=== PATIENT | male | born 1935 | race Caucasian/White ===

== ENCOUNTER 2016-10-06 09:40 | Inpatient (IN) | payer MEDICARE, OTHER ==
--- NOTE | ~2016-10-06 | CN ---
Consultation Report [facility] [address] [place]. [address] NAME: DAVEY GARY ZAKI ALCANTARA : 37 STATUS : ADM IN [facility]#: [id number] AGE: 80 ADM/REG DATE : 10/06/16 MR#: [id number] REPORT SERV DATE: 10/06/16 DICTATED BY: JOSEF YOUNG DATE: 10/06/16 REPORT STATUS : Draft TRANSCRIBED BY: MODL DATE: 10/06/16 CONSULTATION DATE OF CONSULTATION: 10/06/2016 HISTORY OF PRESENT ILLNESS: This is a 80-year-old man whom I am asked to see as an unattached GI consult for GI bleeding. This gentleman had been seen by Dr. Pleitez in the past. He reports a colonoscopy approximately five years ago with findings of diverticulosis. He has never had any prior gastrointestinal bleeding. Three evenings ago, he noticed some loose stool that was bright red and then he passed some maroon. There were even little bits of black. This persisted through this morning, so he came to the emergency room. Hemoglobin was 7.9, but he is hemodynamically stable after a little bit of fluid resuscitation. He is admitted and is receiving packed red blood cells. We were asked to arrange endoscopic evaluation. He denies any abdominal pain. PAST MEDICAL HISTORY: 1. Diverticulosis. 2. Hypertension. 3. BPH. 4. Hyperlipidemia. 5. GERD. PAST SURGICAL HISTORY: Status post melanoma excision in [address] Simone Ruth M.D., Jr., and status post TURP. MEDICATIONS (ON ADMISSION): Aspirin 81 mg, Tums, Coreg, Hygroton, Cardizem CD, Nexium 40 mg a day, Proscar, Metamucil, Crestor, and Diovan. ALLERGIES: NO KNOWN DRUG ALLERGIES. FAMILY HISTORY: No colon cancer or GI issues. SOCIAL HISTORY: He is and his is quite ill with cancer and some heart problems for which she had a valve replacement in [place] and he is her primary caregiver. REVIEW OF SYSTEMS: Otherwise unremarkable. PHYSICAL EXAMINATION: GENERAL: He is quite fit-appearing man for his advanced age. VITAL SIGNS: Afebrile. Hemodynamically stable. SKIN: Warm and dry. Consultation Report [facility] [address] [place]. [address] NAME: DAVEY GARY JR : 37 STATUS : ADM IN PAT#: [id number] AGE: 80 ADM/REG DATE : 10/06/16 MR#: [id number] REPORT SERV DATE: 10/06/16 DICTATED BY: JOSEF YOUNG DATE: 10/06/16 REPORT STATUS : Draft TRANSCRIBED BY: MODL DATE: 10/06/16 LUNGS: Clear. ABDOMEN: Soft, nontender, without mass or organomegaly. EXTREMITIES: No edema. LABORATORY DATA: Portable chest x-ray shows mild bibasilar atelectasis. Sodium 138, potassium 4.1, BUN 25, creatinine 1.63, albumin 3.4. Liver enzymes normal. INR 1.4. Hemoglobin 7.9 and white blood cell count 12.2. IMPRESSION: Gastrointestinal bleeding, which appears to be colonic in nature but with hemodynamic stability and active bleeding likely a couple of days ago. RECOMMENDATIONS: 1. Agree with transfusion. 2. Monitor hemoglobin and hematocrit. 3. Start Protonix 40 mg IV q.12. 4. Bowel prep for EGD and colonoscopy tomorrow. /NERIS Josef Young M.D. / [id number] CC: Zoila Segundo M.D.
--- NOTE | ~2016-10-06 | DS ---
Discharge Summary [facility] [place] [id number] [place]. [address] NAME: DAVEY GARY JR : 37 STATUS : DIS IN PAT#: [id number] AGE: 80 ADM/REG DATE : 10/06/16 MR#: [id number] REPORT SERV DATE: 10/09/16 DICTATED BY: DATE: REPORT STATUS : Draft TRANSCRIBED BY: MODL DATE: 10/08/16 ADMISSION DATE: 10/06/2016 DISCHARGE DATE: 10/08/2016 DISCHARGE DIAGNOSES: 1. Acute lower gastrointestinal bleed most likely diverticular in origin. 2. Acute blood loss anemia. 3. Diverticulosis. 4. Benign prostatic hyperplasia. 5. Hyperlipidemia. 6. Hypertension. 7. Gastroesophageal reflux disease. CONSULTING PHYSICIANS: Include Dr. Josef Young with Gastroenterology. DISCHARGE MEDICATIONS: Include Proscar 5 mg p.o. at bedtime, Nexium 40 mg p.o. daily, Coreg 3.125 mg p.o. daily, Hygroton 12.5 mg p.o. daily, Cardizem CD 240 mg p.o. daily, Diovan 320 mg p.o. at bedtime, Crestor 20 mg p.o. at bedtime, aspirin 81 mg p.o. daily, Metamucil 15 mL p.o. daily. IMAGING: Includes a portable chest x-ray on 09/25/2016, which demonstrated mild bibasilar atelectasis. Otherwise, no acute cardiopulmonary abnormality identified. PROCEDURES: Include esophagogastroduodenoscopy, which demonstrated normal esophagus, normal stomach and gastroesophageal junction, and normal examined duodenum. Colonoscopy demonstrated moderate diverticulosis in the entire examined colon. Otherwise, the examination was normal. No blood in the colon, but possible recent episode consistent with self-limited diverticular bleed. HOSPITAL COURSE/PROBLEM LIST: 1. Acute lower GI bleed. This has resolved. The patient has not had a bowel movement since yesterday. Hemoglobin after 1 unit of blood went from 7.5 to 9.9. The patient is tolerating a regular diet. He requests to go home today. 2. Acute blood loss anemia. As noted above, the patient's hemoglobin is 9.9. He is not actively bleeding. He has not had a bowel movement since yesterday. 3. Diverticulosis. The patient will need to follow up p.r.n. I discussed with the patient if he does start to have bloody bowel movements again to return to the ER immediately. Otherwise, he can follow up with his primary care provider. He does not have a gastroenterologists at this time. He may want to follow up with Dr. Young, who performed his upper and lower endoscopies while here in the hospital. 4. BPH. We will continue his finasteride. 5. Hyperlipidemia. We will continue his statin. 6. Hypertension. The patient's systolic blood pressure this morning was 188; however, we have held all of his antihypertensive medications due to acute blood loss anemia and possible hypotension. I will give the patient his home antihypertensives here prior to discharge and recheck his blood pressure prior to discharge. Discharge Summary [address] [address] NAME: DAVEY GARY JR : 37 STATUS : DIS IN PAT#: [id number] AGE: 80 ADM/REG DATE : 10/06/16 MR#: [id number] REPORT SERV DATE: 10/09/16 DICTATED BY: DATE: REPORT STATUS : Draft TRANSCRIBED BY: MODL DATE: 10/08/16 7. GERD. We will continue the patient's Nexium. Again, the patient will follow up with his primary care provider, Dr. Julio Romero. CLR/MODL Ren Garvin NP / [id number] CC: MD Julio Padilla M.D.
--- NOTE | ~2016-10-06 | HP ---
History And Physical [place] [id number] [facility] [address] [place]. [address] NAME: DAVEY GARY JR : 37 STATUS : ADM IN [facility]#: [id number] AGE: 80 ADM/REG DATE : 10/06/16 MR#: [id number] REPORT SERV DATE: 10/06/16 DICTATED BY: WANDER SOSA DATE: 10/06/16 REPORT STATUS : Draft TRANSCRIBED BY: MODChristina DATE: 10/06/16 DATE OF ADMISSION: 10/06/2016 CHIEF COMPLAINT: GI bleed. BRIEF HISTORY OF PRESENT ILLNESS: The patient is a 80-year-old white male, relatively healthy, who presented to [facility] emergency room early this morning with complaints of GI bleeding that has been rodolfo bright red per rectum. He said it started on , and he has had several bowel movements that have just been grossly bloody. Prior to that, he denied any black stools, any nausea or vomiting. He has not had any weight loss. He has not any fever or chills. He denied any chest pain. He did have a syncopal episode this morning and fell. When he came to, he was fully awake, alert, and oriented. Did not lose control of his bowel or his bladder. In the emergency room, he was found to have a significantly low hemoglobin of 7.8 and a slightly low blood pressure around one teens, so he was referred to the hospitalist service for further treatment and evaluation. REVIEW OF SYSTEMS: Negative except for what is noted in the HPI. PAST MEDICAL HISTORY: Significant for hypertension, hyperlipidemia, abnormal rhythm, gastroesophageal reflux, diverticulosis, and benign prostatic hypertrophy. PAST SURGICAL HISTORY: Significant for colonoscopy five years ago by Dr. Corey Pleitez showing diverticulosis. Prostate cryotherapy, without prostate cancer. ALLERGIES: NO KNOWN DRUG ALLERGIES. HOME MEDICATIONS: Aspirin 81 mg daily, Tums 500 mg daily p.r.n., Coreg 3.125 mg daily, Hygroton 12.5 mg once daily, Cardizem CD 240 mg once daily, Nexium 40 mg once every morning, Proscar 5 mg once at bedtime, Metamucil packet p.r.n., Crestor 20 mg daily, valsartan 325 mg p.o. daily. SOCIAL HISTORY: He was a previous smoker, quit in 1997. Smoked heavily and a pipe and chewed tobacco. He was a prior drinker, quit in 1969. No use of illicit substances. FAMILY HISTORY: Significant for a son who has diverticulosis. Mother early in age, unknown cause. Father was an [employer] vet, and was on many medicines, but unknown type of disease. PHYSICAL EXAMINATION: GENERAL: White male, lying on a gurney, appears to be in no respiratory distress. Appears younger than his stated age. VITAL SIGNS: Blood pressure is 160/51, temp 97.7, pulse 82, saturation 96% on room air. HEENT: Head is normocephalic, atraumatic. Pupils are equal, round, and reactive to light. Sclerae, eyes anicteric. Conjunctivae are pale. Extraocular muscles are intact. Oropharynx without lesion. Tongue protrusion midline. Uvula midline. Pale mucous History And Physical [address] [place]. [address] NAME: DAVEY GARY : 37 STATUS : ADM IN [facility]#: [id number] AGE: 80 ADM/REG DATE : 10/06/16 MR#: [id number] REPORT SERV DATE: 10/06/16 DICTATED BY: WANDER SOSA DATE: 10/06/16 REPORT STATUS : Draft TRANSCRIBED BY: NERIS DATE: 10/06/16 membranes are noted. NECK: Supple. No jugular venous distention. No carotid bruits or thyromegaly is appreciated. No lymphadenopathy in the neck is palpable. HEART: Regular rate rhythm. No murmurs, rubs, or gallops are heard. PMI nondisplaced. LUNGS: Clear to auscultation both anteriorly and posteriorly without rales, rhonchi, wheezing, or consolidation. ABDOMEN: Scaphoid, soft, nontender, good bowel sounds. No rebound or guarding. No organomegaly. EXTREMITIES: Without cyanosis, clubbing, or edema. NEUROLOGICAL: Exam seems to be grossly intact. LABS: EKG sinus rhythm with multiple PACs, right bundle-branch block. No acute ST-T wave changes. White count is 12.2, hemoglobin is 7.9, hematocrit is 23.4, platelet count is 399,000. Sodium 138, potassium 4.1, chloride 108, bicarb 25, BUN 25, creatinine 1.03, glucose of 147. PT is 16.9, INR of 1.4, PTT of 27. Liver function studies are normal. Chest x-ray, no acute disease. IMPRESSION: 1. Lower GI bleed. 2. Anemia of acute blood loss. 3. Hypertension. 4. Hyperlipidemia. 5. Gastroesophageal reflux. 6. Diverticulosis. 7. Benign prostatic hypertrophy. PLAN: The patient will be admitted. Transfuse PRBCs. Monitor serial H and H. GI consultation. We will need a colonoscopy. Hold antihypertensives. The patient is a DNR. POLST form signed and on the chart. SV/MODL Wander Sosa M.D. / [id number] CC: Zoila Segundo M.D. Brian Negus, M.D.
--- NOTE | ~2016-10-06 | EGD ---
EGD REPORT [facility] [address] [address] NAME: PEDRO GARY JR : 37 STATUS : ADM IN PAT#: [id number] AGE: 80 ADM/REG DATE : 10/06/16 MR#: [id number] REPORT SERV DATE: 10/07/16 DICTATED BY: MICHAEL BRIGHT DATE: 10/07/16 REPORT STATUS : Draft TRANSCRIBED BY: [facility] DATE: 10/07/16 Endoscopy Center Patient Name: Pedro Gary Date of : 1935 Attending MD: MICHAEL BRIGHT MD Procedure Date No Time: 10/07/2016 Procedure: Colonoscopy Indications: Hematochezia, Acute post hemorrhagic anemia Referring MD: NEIDA REYES Medicines: Propofol per Anesthesia Complications: No immediate complications. Estimated blood loss: None. Procedure: Pre-Anesthesia Assessment: - After reviewing the risks and benefits, the patient was deemed in satisfactory condition to undergo the procedure. - Prior to the procedure, a History and Physical was performed, and patient medications and allergies were reviewed. The patient's tolerance of previous anesthesia was also reviewed. The risks and benefits of the procedure and the sedation options and risks were discussed with the patient. All questions were answered, and informed consent was obtained. Prior Anticoagulants: The patient has taken no previous anticoagulant or antiplatelet agents. ASA Grade Assessment: III - A patient with severe systemic disease. After reviewing the risks and benefits, the patient was deemed in satisfactory condition to undergo the procedure. After I obtained informed consent, the scope was passed under direct vision. Throughout the procedure, the patient's blood pressure, pulse, and oxygen saturations were monitored continuously. The CF [id number] was introduced through the anus and advanced to the cecum, identified by appendiceal orifice and ileocecal valve. The colonoscopy was performed without difficulty. The ileocecal valve and appendiceal orifice were photographed. The patient tolerated the procedure well. The quality of the bowel preparation was adequate to identify polyps 6 mm and larger in size. The bowel preparation used was split dose polyethylene glycol (PEG). Scope withdrawal time was 8 minutes. Findings: The perianal and digital rectal examinations were normal. Pertinent negatives include normal sphincter tone. Multiple small and large-mouthed diverticula were found in the entire EGD REPORT [address] [place]. [address] NAME: PEDRO GARY : 37 STATUS : ADM IN [facility]#: [id number] AGE: 80 ADM/REG DATE : 10/06/16 MR#: [id number] REPORT SERV DATE: 10/07/16 DICTATED BY: MICHAEL BRIGHT DATE: 10/07/16 REPORT STATUS : Draft TRANSCRIBED BY: Loginza DATE: 10/07/16 colon. The exam was otherwise without abnormality. Impression: - Moderate diverticulosis in the entire examined colon. - The examination was otherwise normal. - No blood in the colon but recent episode consistent with self-limited diverticular bleed. Recommendation: - [facility] patient [facility] care. - Advance diet. - Monitor hemoglobin. - If stable, home in AM. Procedure Code(s): --- Professional --- 18299, Colonoscopy, flexible, proximal to splenic flexure; diagnostic, with or without collection of specimen(s) by brushing or washing, with or without colon decompression (separate procedure) Diagnosis Code(s): --- Professional --- K57.30, Diverticulosis of large intestine without perforation or abscess without bleeding K92.1, Melena D62, Acute posthemorrhagic anemia CPT copyright 2013 [employer]. All rights reserved. The codes documented in this report are preliminary and upon medical billing coder review may be revised to meet current compliance requirements. MICHAEL BRIGHT MD 10/07/2016 3:58 PM This report has been signed electronically. Number of Addenda: 0 Note Initiated On: 10/07/2016 3:20 PM Scope Withdrawal Time 0 hours 7 minutes 32 seconds [address] [place] [address]
--- NOTE | ~2016-10-06 | EGD ---
EGD REPORT [facility] [address] [address] NAME: PEDRO GARY JR : 37 STATUS : ADM IN PAT#: [id number] AGE: 80 ADM/REG DATE : 10/06/16 MR#: [id number] REPORT SERV DATE: 10/07/16 DICTATED BY: MICHAEL BRIGHT DATE: 10/07/16 REPORT STATUS : Draft TRANSCRIBED BY: [facility] DATE: 10/07/16 Endoscopy Center Patient Name: Pedro Gary Date of : 1935 Attending MD: MICHAEL BRIGHT MD Procedure Date No Time: 10/07/2016 Procedure: Upper GI endoscopy Indications: Hematochezia Referring MD: NEIDA REYES Medicines: Propofol per Anesthesia Complications: No immediate complications. Estimated blood loss: None. Procedure: Pre-Anesthesia Assessment: - After reviewing the risks and benefits, the patient was deemed in satisfactory condition to undergo the procedure. - Prior to the procedure, a History and Physical was performed, and patient medications and allergies were reviewed. The patient's tolerance of previous anesthesia was also reviewed. The risks and benefits of the procedure and the sedation options and risks were discussed with the patient. All questions were answered, and informed consent was obtained. Prior Anticoagulants: The patient has taken no previous anticoagulant or antiplatelet agents. ASA Grade Assessment: III - A patient with severe systemic disease. After reviewing the risks and benefits, the patient was deemed in satisfactory condition to undergo the procedure. After obtaining informed consent, the endoscope was passed under direct vision. Throughout the procedure, the patient's blood pressure, pulse, and oxygen saturations were monitored continuously. The GIF [id number] was introduced through the mouth, and advanced to the third part of duodenum. The upper GI endoscopy was accomplished without difficulty. The patient tolerated the procedure well. Findings: The examined esophagus was normal. The entire examined stomach and gastroesophageal junction (on retroflexion) were normal. The examined duodenum was normal. Impression: - Normal esophagus. - Normal stomach and gastroesophageal junction. - Normal examined duodenum. EGD REPORT [address] [address] NAME: PEDRO GARY : 37 STATUS : ADM IN [facility]#: [id number] AGE: 80 ADM/REG DATE : 10/06/16 MR#: [id number] REPORT SERV DATE: 10/07/16 DICTATED BY: MICHAEL BRIGHT. DATE: 10/07/16 REPORT STATUS : Draft TRANSCRIBED BY: [employer] DATE: 10/07/16 Recommendation: - Return patient to [facility] for ongoing care. - Proceed with colonoscopy. Procedure Code(s): --- Professional --- 75281, Esophagogastroduodenoscopy, flexible, transoral; diagnostic, including collection of specimen(s) by brushing or washing, when performed (separate procedure) Diagnosis Code(s): --- Professional --- K92.1, Melena CPT copyright 2013 [employer]. All rights reserved. The codes documented in this report are preliminary and upon coder operator review may be revised to meet current compliance requirements. MICHAEL BRIGHT MD 10/07/2016 3:37 PM This report has been signed electronically. Number of Addenda: 0 Note Initiated On: 10/07/2016 3:23 PM Scope Withdrawal Time 0 hours 0 minutes 0 seconds [address] [place] [address]
[2016-10-06 09:33] LABS: BASOPHILS 0.3 %; BASOPHILS ABSOLUTE 0.04 10/3/uL (0.0-0.16); EOSINOPHILS 2.5 %; ER CBC TAT 0 Hrs 08 Mins; HEMATOCRIT 23.4 % (40.0-51.0); HEMOGLOBIN 7.9 g/dL (13.6-17.8); IMMATURE GRANULOCYTES 0.6 %; IMMATURE GRANULOCYTES ABSOLUTE 0.07 10/3/uL (0.0-0.11); LYMPHOCYTES 18.5 %; LYMPHOCYTES ABSOLUTE 2.25 10/3/uL (0.67-4.30); MANUAL DIFF NO %; MEAN CORPUS HGB CONC 33.8 g/dL (32.0-36.0); MEAN CORPUSCULAR HEMOGLOB 28.9 pg (26.0-34.0); MEAN CORPUSCULAR VOLUME 85.7 fL (80-100); MEAN PLATELET VOLUME 8.5 fL (9.2-13.0); MONOCYTES 6.2 %; MONOCYTES ABSOLUTE 0.75 10/3/uL (0.21-1.20); NEUTROPHILS 71.9 %; NEUTROPHILS ABSOLUTE 8.75 10/3/uL (2.02-8.40); PLATELET COUNT 399 10/3/uL (150-400); RBC DISTRIBUTION WIDTH 14.6 % (12.0-16.0); RED CELL COUNT 2.73 10/6/uL (4.7-6.1); WHITE BLOOD CELLS 12.2 10/3/uL (4.5-10.5)
[2016-10-06 09:37] LABS: INTERNATIONAL NORMAL RATI 1.4 UNITS (-); PARTIAL THROMBO TIME 27.3 SEC (22.5-37.2); PROTIME (NOT ORD) 16.9 SEC (12.0-14.5)
[~2016-10-06 09:40] MED LIST: ASAB PO; CARDCD240 PO; COREG3 PO; CRESTOR20 MG PO; DIOVAN320 MG PO; HYGROTON 25 MG25 MG PO; METPAKSF PO; NEXIUM40 PO; PROSCAR5 PO; TUMSROLL PO
[2016-10-06 09:46] LABS: A/G RATIO 1.4 (0.7-1.9); ALBUMIN 3.4 G/DL (3.5-5.0); ALKALINE PHOSPHATASE 60 U/L (45-117); CALCIUM, SERUM 9.1 MG/DL (8.5-10.4); CHLORIDE, SERUM 108 MMOL/L (96-112); CO2 (CARBON DIOXIDE) 25 MMOL/L (24-34); CREATININE 1.03 MG/DL (0.70-1.30); GFR AFRICAN AMERICAN 80 ML/MIN (>=60); GFR NON AFRICAN AMERICAN 69 ML/MIN (>=60); GLOBULIN 2.4 G/DL (2.5-4.1); POTASSIUM, SERUM 4.1 MMOL/L (3.5-5.3); SGOT(AST) 10 U/L (5-40); SGPT(ALT) 20 U/L (5-65); SODIUM, SERUM 138 MMOL/L (135-148); TOTAL BILIRUBIN 0.2 MG/DL (0-1.2); TOTAL PROTEIN 5.8 G/DL (6.0-8.5)
[2016-10-06 09:47] LABS: BUN (BLOOD UREA NITROGEN) 25 MG/DL (6-23); GLUCOSE, SERUM 147 MG/DL (60-99)
[2016-10-06 16:28] LABS: HEMOGLOBIN 8.2 g/dL (13.6-17.8)
[2016-10-06 21:28] LABS: HEMATOCRIT 23.3 % (40.0-51.0)
[2016-10-07 03:58] LABS: BASOPHILS 0.6 %; BASOPHILS ABSOLUTE 0.05 10/3/uL (0.0-0.16); EOSINOPHILS 2.9 %; EOSINOPHILS ABSOLUTE 0.23 10/3/uL (0.0-0.53); HEMATOCRIT 21.3 % (40.0-51.0); HEMOGLOBIN 7.4 g/dL (13.6-17.8); IMMATURE GRANULOCYTES 0.3 %; IMMATURE GRANULOCYTES ABSOLUTE 0.02 10/3/uL (0.0-0.11); LYMPHOCYTES 24.3 %; LYMPHOCYTES ABSOLUTE 1.93 10/3/uL (0.67-4.30); MANUAL DIFF NO %; MEAN CORPUS HGB CONC 34.7 g/dL (32.0-36.0); MEAN CORPUSCULAR HEMOGLOB 29.7 pg (26.0-34.0); MEAN CORPUSCULAR VOLUME 85.5 fL (80-100); MEAN PLATELET VOLUME 8.2 fL (9.2-13.0); MONOCYTES 9.8 %; MONOCYTES ABSOLUTE 0.78 10/3/uL (0.21-1.20); NEUTROPHILS 62.1 %; NEUTROPHILS ABSOLUTE 4.94 10/3/uL (2.02-8.40); PLATELET COUNT 296 10/3/uL (150-400); RBC DISTRIBUTION WIDTH 14.5 % (12.0-16.0); RED CELL COUNT 2.49 10/6/uL (4.7-6.1)
[2016-10-07 04:17] LABS: ALBUMIN 2.8 G/DL (3.5-5.0); CALCIUM, SERUM 8.3 MG/DL (8.5-10.4); CHLORIDE, SERUM 113 MMOL/L (96-112); CO2 (CARBON DIOXIDE) 23 MMOL/L (24-34); CREATININE 0.74 MG/DL (0.70-1.30); GFR AFRICAN AMERICAN 102 ML/MIN (>=60); GFR NON AFRICAN AMERICAN 88 ML/MIN (>=60); PHOSPHORUS, SERUM 2.5 MG/DL (2.5-4.5); POTASSIUM, SERUM 3.6 MMOL/L (3.5-5.3)
[2016-10-07 04:18] LABS: BUN (BLOOD UREA NITROGEN) 11 MG/DL (6-23); GLUCOSE, SERUM 98 MG/DL (60-99); SODIUM, SERUM 146 MMOL/L (135-148)
[2016-10-07 07:58] LABS: INTERNATIONAL NORMAL RATI 1.4 UNITS (-); PROTIME (NOT ORD) 16.8 SEC (12.0-14.5)
[2016-10-07 09:36] LABS: HEMATOCRIT 21.9 % (40.0-51.0); HEMOGLOBIN 7.5 g/dL (13.6-17.8)
[2016-10-08 07:22] LABS: ALBUMIN 2.9 G/DL (3.5-5.0); BUN (BLOOD UREA NITROGEN) 6 MG/DL (6-23); CHLORIDE, SERUM 112 MMOL/L (96-112); CO2 (CARBON DIOXIDE) 19 MMOL/L (24-34); CREATININE 0.71 MG/DL (0.70-1.30); GFR AFRICAN AMERICAN 103 ML/MIN (>=60); GFR NON AFRICAN AMERICAN 89 ML/MIN (>=60); GLUCOSE, SERUM 80 MG/DL (60-99); PHOSPHORUS, SERUM 3.2 MG/DL (2.5-4.5); POTASSIUM, SERUM 3.7 MMOL/L (3.5-5.3); SODIUM, SERUM 142 MMOL/L (135-148)
[2016-10-08 08:28] LABS: BASOPHILS 0.5 %; BASOPHILS ABSOLUTE 0.05 10/3/uL (0.0-0.16); EOSINOPHILS 3.2 %; EOSINOPHILS ABSOLUTE 0.35 10/3/uL (0.0-0.53); IMMATURE GRANULOCYTES 0.6 %; IMMATURE GRANULOCYTES ABSOLUTE 0.07 10/3/uL (0.0-0.11); LYMPHOCYTES 17.5 %; LYMPHOCYTES ABSOLUTE 1.93 10/3/uL (0.67-4.30); MEAN CORPUS HGB CONC 34.3 g/dL (32.0-36.0); MEAN CORPUSCULAR HEMOGLOB 29.6 pg (26.0-34.0); MEAN CORPUSCULAR VOLUME 86.5 fL (80-100); MEAN PLATELET VOLUME 8.3 fL (9.2-13.0); MONOCYTES 6.2 %; MONOCYTES ABSOLUTE 0.68 10/3/uL (0.21-1.20); NEUTROPHILS ABSOLUTE 7.93 10/3/uL (2.02-8.40); PLATELET COUNT 367 10/3/uL (150-400); RBC DISTRIBUTION WIDTH 14.7 % (12.0-16.0)
[2016-10-08 08:29] LABS: HEMATOCRIT 28.9 % (40.0-51.0); HEMOGLOBIN 9.9 g/dL (13.6-17.8); MANUAL DIFF NO %; RED CELL COUNT 3.34 10/6/uL (4.7-6.1)
== END 2016-10-08 15:04 | disposition home or self-care (01) | DRG 378 ==
LOC: ER 09:40 → 5SO 11:44
PROVIDERS: Emergency Medicine; Internal Medicine; Internal Medicine Gastroenterology
PROC: 30233N1 Transfusion of Nonautologous Red Blood Cells into Peripheral Vein, Percutaneous Approach (ICD-10-PCS; 2016-10-06)
PROC: 0DJ08ZZ Inspection of Upper Intestinal Tract, Via Natural or Artificial Opening Endoscopic (ICD-10-PCS; principal; 2016-10-07 15:34)
PROC: 0DJD8ZZ Inspection of Lower Intestinal Tract, Via Natural or Artificial Opening Endoscopic (ICD-10-PCS; 2016-10-07 15:34)
DX: K57.31 Diverticulosis of large intestine without perforation or abscess with bleeding (principal); D62 Acute posthemorrhagic anemia; I10 Essential (primary) hypertension; E78.5 Hyperlipidemia, unspecified; K21.9 Gastro-esophageal reflux disease without esophagitis; N40.0 Benign prostatic hyperplasia without lower urinary tract symptoms; Z79.82 Long term (current) use of aspirin; Z79.899 Other long term (current) drug therapy; Z87.891 Personal history of nicotine dependence
CPT/HCPCS: 36415; 71010; 80053; 80069; 81001; 85014; 85018; 85025; 85610; 85730; 86850; 86900; 86901; 86920; 93005; 99284; A9270-GY; C9113; J0360; J2405; P9016